=== PATIENT | female | born 1975 | race African-American/Black ===

== ENCOUNTER 2017-09-02 08:41 | Emergency (ER) | payer BC ==
[2010-07-06 10:09] VITALS: BMI 39.4
[2017-09-02 09:20] LABS: BASOPHILS 0.3 % (0-2); EOSINOPHILS 2.1 % (0-7); HEMATOCRIT 39.3 % (36.0-48.0); HEMOGLOBIN 12.5 g/dL (12-16); IMMATURE GRANULOCYTES 0.2 % (0-5); LYMPHOCYTES 37.6 % (15-50); MCH 25.4 pg (26.0-34.0); MCHC 31.8 g/dL (31.0-37.0); MCV 79.9 fL (80.0-100.0); MEAN PLATELET VOLUME 9.7 fL (7.4-10.4); MONOCYTES 8.2 % (2-11); NEUTROPHILS 51.6 % (40-80); RBC 4.92 10x6/uL (4.00-5.40); RDW 14.4 % (11.5-14.5); WBC 6.3 10x3/uL (4.8-10.8)
[2017-09-02 09:23] LABS: PLATELET COUNT 337 10x3/uL (130-400)
[2017-09-02 09:48] LABS: ALBUMIN 3.5 g/dL (3.4-5.0); ALKALINE PHOSPHATASE 127 U/L (46-116); ALT (SGPT) 26 U/L (10-68); CALC OSMOLALITY 276 mosm/kg (275-300); CALCIUM 8.8 mg/dL (8.5-10.1); CARBON DIOXIDE 23.6 mmol/L (21.0-32.0); CHLORIDE - SERUM 107 mmol/L (98-107); GLUCOSE 97 mg/dL (74-106); PROTEIN - SERUM 7.7 g/dL (6.4-8.2); SODIUM 139 mmol/L (136-145); UREA NITROGEN 11 mg/dL (7-18); eGFR NON AFRICAN AMERICAN 65 mL/min (90-120)
[2017-09-02 10:00] LABS: CHOL - HDL RATIO 3.4 ratio (2.3-4.1); CHOLESTEROL, TOTAL 129 mg/dL (0-200); CKMB 0.5 U/L (0.0-3.6); CREATINE KINASE 148 UL (21-215); HDL CHOLESTEROL 38 mg/dL (32-96); LDL CHOLESTEROL 81 mg/dL (0-100); LDL-HDL RATIO 2.1 ratio (1.5-3.5); TRIGLYCERIDE 50 mg/dL (30-200); TROPONIN-I < 0.017 ng/mL (0.000-0.060)
== END 2017-09-02 11:51 | disposition home or self-care (01) ==
LOC: D.ER 08:41
PROVIDERS: Emergency Medicine
DX: R07.9 Chest pain, unspecified (principal); J45.909 Unspecified asthma, uncomplicated; I10 Essential (primary) hypertension

== ENCOUNTER → 2018-01-15 17:15 | Outpatient (CLI) | payer BC ==
[2010-07-06 10:09] VITALS: BMI 39.4
== END | disposition home or self-care (01) ==
LOC: D.MAMMO 12-09 16:15
DX: Z12.31 Encounter for screening mammogram for malignant neoplasm of breast (principal)

== ENCOUNTER → 2019-03-20 23:19 | Outpatient (CLI) | payer BC ==
[2010-07-06 10:09] VITALS: BMI 39.4
== END | disposition home or self-care (01) ==
LOC: D.MAMMO 13:15
PROVIDERS: ATTEND Anesthesiology
DX: Z12.31 Encounter for screening mammogram for malignant neoplasm of breast (principal)